=== PATIENT | female | born 1975 | race Caucasian/White ===

== ENCOUNTER 2018-11-08 05:35 | Day surgery (SDC) | payer BC ==
[2018-11-06 11:16] LABS: BILIRUBIN,URINE NEGATIVE (NEGATIVE); BLOOD, URINE NEGATIVE (NEGATIVE); CLARITY/URINE CLEAR (CLEAR); COLOR,URINE YELLOW (YELLOW); GLUCOSE,URINE NEGATIVE (NEGATIVE); KETONES,URINE NEGATIVE (NEGATIVE); LEUKOCYTE ESTERASE ,URINE NEGATIVE (NEGATIVE); NITRITE, URINE NEGATIVE (NEGATIVE); PROTEIN URINE NEGATIVE (NEGATIVE); UROBILINOGEN,URINE 0.2 (0.2-1.0)
[2018-11-06 11:22] LABS: HEMATOCRIT 36.3 % (36-48); HEMOGLOBIN 11.2 g/dL (12.0-16.0); WHITE BLOOD COUNT (AUTO) 5.4 K/uL (4.8-10.8)
[2018-11-06 11:23] LABS: BASOPHILS # (AUTO) 0.1 K/uL (0.0-0.2); BASOPHILS % (AUTO) 1.2 % (0.0-2.0); EOSINOPHILS # (AUTO) 0.1 K/uL (0.0-0.4); EOSINOPHILS % (AUTO) 1.5 % (0.0-4.0); LYMPHOCYTES # (AUTO) 1.3 K/uL (1.0-5.5); LYMPHOCYTES % (AUTO) 23.7 % (20.5-51.5); MEAN CORPUSCULAR HEMOGLOBIN 22 pg (27-31); MEAN CORPUSCULAR HGB CONC 31 % (32-36); MEAN CORPUSCULAR VOLUME 71 fL (79.0-98.0); MONOCYTES # (AUTO) 0.4 K/uL (0.0-1.0); MONOCYTES % (AUTO) 7.5 % (1.7-9.3); NEUTROPHILS # (AUTO) 3.6 K/uL (1.8-7.7); NEUTROPHILS % (AUTO) 66.1 % (40.0-70.0); PLATELET COUNT (AUTO) 310 K/uL (130-430); RED CELL DISTRIBUTION WIDTH 33.8 % (9.0-15.0)
[2018-11-06 11:34] LABS: CALCIUM 8.3 mg/dL (8.4-11.0); CREATININE 0.69 mg/dL (0.55-1.30); POTASSIUM 3.3 mmol/L (3.5-5.1)
[~2018-11-08] VITALS: Ht 165.1 cm; Wt 64.9 kg
[~2018-11-08 05:35] MED LIST: PREN-89 PO
[2018-11-08] MEDS ORDERED: NS 1000 ML IV.SOLN IV ONE (07:15)
[2018-11-08] MEDS ORDERED: SEVOFLURANE 15 MIN GAS INH ONE (07:15)
[2018-11-08] MEDS ORDERED: ROCURONIUM BROMIDE 10 MG/ML (ZEMURON) IV ONE (07:15)
[2018-11-08] MEDS ORDERED: NS IRRIG SOLN 1000 ML IR ONE (07:15)
[2018-11-08] MEDS ORDERED: KETOROLAC TROMETHAMINE 30 MG VIAL IVP ONE (07:15)
[2018-11-08] MEDS ORDERED: fentaNYL CITRATE/PF 100 MCG/2 ML AMP IVP ONE (07:15)
[2018-11-08] MEDS ORDERED: LR 1,000 ML IV.SOLN IV ONE (07:15)
[2018-11-08] MEDS ORDERED: ONDANSETRON HCL 4 MG/2 ML VIAL IVP ONE (07:15)
[2018-11-08] MEDS ORDERED: SILVER NITRATE APPLICATOR 1 STICK STICK..EA. TP ONE (07:15)
[2018-11-08] MEDS ORDERED: MIDAZOLAM HCL 5 MG/5 ML VIAL IVP ONE (07:15)
[2018-11-08] MEDS ORDERED: PROPOFOL 200MG/ 20ML VIAL (DIPRIVAN) IV ONE (07:15)
[2018-11-08 09:10] VITALS: BP_SYST 102
== END 2018-11-08 10:25 | disposition home or self-care (01) ==
LOC: SMU 05:35 → SDS 05:35
PROVIDERS: ATTEND Obstetrics & Gynecology
DX: N93.9 Abnormal uterine and vaginal bleeding, unspecified (principal); D64.9 Anemia, unspecified; N88.2 Stricture and stenosis of cervix uteri; Z98.890 Other specified postprocedural states; Z79.899 Other long term (current) drug therapy; Z82.49 Family history of ischemic heart disease and other diseases of the circulatory system
CPT/HCPCS: 36415; 58558; 80048; 81003; 84703; 85025; 86886; 86900; 86901; 88305; J7120; J1885; J2250; J2405; J2704; J3010; J7030

== ENCOUNTER 2019-05-07 08:09 | Day surgery (SDC) | payer BC ==
[~2019-05-07] VITALS: Ht 165.1 cm; Wt 66.7 kg
[2019-05-07] MEDS ORDERED: LR 1,000 ML IV SCH ×2 (10:20→12:10)
[2019-05-07] MEDS ORDERED: SIMETHICONE 80 MG TAB.CHEW PO PRN (10:30)
[2019-05-07] MEDS ORDERED: IBUPROFEN 800 MG TABLET PO PRN ×2 (10:30→11:30)
[2019-05-07] MEDS ORDERED: OXYCODONE/ACETAMINOPHEN 5-325 TABLET PO PRN ×4 (10:30→11:30)
[2019-05-07] MEDS ORDERED: ONDANSETRON HCL 4 MG/2 ML VIAL IVP PRN (10:30)
[2019-05-07] MEDS ORDERED: ONDANSETRON HCL 4 MG/2 ML VIAL IM PRN (11:30)
[2019-05-07] MEDS ORDERED: KETOROLAC TROMETHAMINE 30 MG VIAL ONE (11:40)
[2019-05-07] MEDS ORDERED: NS 1000 ML IV.SOLN IV ONE (11:40)
[2019-05-07] MEDS ORDERED: LR 1,000 ML IV.SOLN IV ONE (11:40)
[2019-05-07] MEDS ORDERED: fentaNYL CITRATE/PF 100 MCG/2 ML AMP ONE (11:40)
[2019-05-07] MEDS ORDERED: MIDAZOLAM HCL 5 MG/ML VIAL (VERSED) IV ONE (11:40)
[2019-05-07] MEDS ORDERED: SEVOFLURANE 15 MIN GAS INH ONE (11:40)
[2019-05-07] MEDS ORDERED: ONDANSETRON HCL 4 MG/2 ML VIAL ONE ×2 (11:40→12:01)
[2019-05-07] MEDS ORDERED: ROCURONIUM BROMIDE 10 MG/ML (ZEMURON) ONE (11:40)
[2019-05-07] MEDS ORDERED: DEXAMETHASONE SOD PHOSPHATE 4 MG/ML VIAL ONE (11:40)
[2019-05-07] MEDS ORDERED: PROPOFOL 200MG/ 20ML VIAL (DIPRIVAN) IV ONE (11:40)
[2019-05-07] MEDS ORDERED: HYDROmorphone 1 MG INJ. 1 MG/ML AMPUL ONE (12:13)
[2019-05-07] MEDS ORDERED: HYDROmorphone 2 MG/ML VIAL IVP PRN ×2 (12:15)
[2019-05-07] MEDS ORDERED: MEPERIDINE HCL/PF 25 MG/ML DISP.SYRIN IVP PRN (12:15)
[2019-05-07] MEDS ORDERED: HYDROmorphone 1 MG INJ. 1 MG/ML AMPUL IVP ONE (12:15)
[2019-05-07] MEDS ORDERED: HYDROmorphone 1 MG INJ. 1 MG/ML AMPUL IVP PRN (12:15)
[2019-05-07 12:51] VITALS: BP_SYST 109
[2019-05-07] MEDS ORDERED: SENNOSIDES/DOCUSATE SODIUM 1 TAB TABLET(SENOKOT-S) PO PRN ×2 (21:00)
[2019-05-07] MEDS ORDERED: TEMAZEPAM 15 MG CAPSULE PO PRN (21:00)
== END 2019-05-07 14:12 | disposition home or self-care (01) ==
LOC: SMU 08:09 → SDS 08:09
PROVIDERS: ATTEND Obstetrics & Gynecology
DX: N93.9 Abnormal uterine and vaginal bleeding, unspecified (principal); N92.0 Excessive and frequent menstruation with regular cycle; N84.0 Polyp of corpus uteri; D64.9 Anemia, unspecified; Z98.890 Other specified postprocedural states; Z80.3 Family history of malignant neoplasm of breast
CPT/HCPCS: 58563; 88305; J1100; J1170; J1885; J2250; J2405; J2704; J3010; J7030; J7120